=== PATIENT | male | born 1950 | race Caucasian/White ===

== ENCOUNTER 2018-07-30 07:30 | Inpatient (IN) | payer OTHER, MEDICARE ==
--- NOTE | 2018-08-05 20:10 | HP ---
HISTORY AND PHYSICAL: DATE OF ADMISSION/SURGERY: 08/18/18 SURGEON: Samantha Larry MD* (dictated by ELY Singletary). PROCEDURE: Revision right total hip arthroplasty. CHIEF COMPLAINT: Right hip pain. HISTORY OF PRESENT ILLNESS: Mr. Ortega is a 68-year-old gentleman with a painful right total hip arthroplasty. He has elected to proceed with revision of a right total hip arthroplasty. The surgery is scheduled for 08/18/18. PAST MEDICAL HISTORY: Hypertension and gout. PAST SURGICAL HISTORY: Right total hip arthroplasty and ganglion cyst excision. CURRENT MEDICATIONS: 1. Omeprazole 20 mg daily. 2. Hydrochlorothiazide 12.5 mg daily. ALLERGIES: To HYDROCODONE causing a rash. FAMILY HISTORY: Denies. SOCIAL HISTORY: He is 68-year-old gentleman, lives with his . He does not smoke or use drugs. Uses occasional alcohol. REVIEW OF SYSTEMS: A complete 14-point review of systems was reviewed with the patient. Positive for GERD. He denies history of DVT, PE, hepatitis, HIV, or anesthesia problems. PHYSICAL EXAMINATION GENERAL: He is well developed, well nourished, in no acute distress. VITAL SIGNS: He stands 5 feet 9 inches tall, weighs 185 pounds. His blood pressure is 122/84 and his heart rate is 60. HEENT: Normocephalic, atraumatic. NECK: Supple. No palpable lymph nodes. PULMONARY: The lungs are clear to auscultation bilaterally. CARDIO: Regular rate and rhythm. Strong S1, S2. ABDOMEN: Soft, nontender, and nondistended. NEUROLOGICAL: He is alert and oriented x3. MUSCULOSKELETAL: Right lower extremity: The skin is intact. There are no open wounds or abrasions. He walks with an antalgic type gait favoring his right hip. He has a 2+ dorsalis pedis pulse, intact sensation and his lower extremity muscle group strengths are intact at 5/5. ASSESSMENT AND PLAN: Mr. Ortega is a 68-year-old gentleman with a painful right total hip arthroplasty. He has failed conservative treatment and elected to have a revision of the right total hip arthroplasty. The surgery is scheduled for 08/18/[address] Larry discussed the risks and the benefits of the surgery at today's visit and all of his questions were answered. He will follow up with Dr. Larry 2 weeks after the surgery. ELY SINGLETARY [id number]/[facility] #: [id number] [place]
[2018-08-17] MEDS ORDERED: Buffered Lidocaine 0.9% SYRIN* 5 ML/SYR SYRINGE INTRADERM ONE (14:47)
[2018-08-18] MEDS ORDERED: Acetaminophen TAB* 325 MG PO ONE (06:00)
[2018-08-18] MEDS ORDERED: Gabapentin CAP(*) 300 MG PO ONE (06:00)
--- OUTSIDE RECORDS SUMMARY | 2018-08-18 08:05 | XMS REPORT | Continuity of Care Document ---
:1950 External Reference #:[id number] Author Name Yeison Hernandez Care Team Providers Name Role Phone Lucille Fritz M.D. Primary Care Physician Unavailable Payers Type Date Identification Numbers Payment Provider Subscriber Policy Number: [id number] [facility] Health Ins Ppo/Epo Pa Ortega PayID: [id number] [address] [place] [address] Advance Directives Description No Information Available Problems Date Description Provider Status Onset: 04/27/2018 Prosthetic arthroplasty of the hip Samantha Larry M.D. Active Onset: 04/27/2018 Prosthetic joint loosening Samantha Larry M.D. 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 Tobacco Use Start: Unknown Never Smoked Cigarettes Smoking Status Reviewed: 08/05/18 Never Smoked Cigarettes ETOH Use Currently consumes alcohol 20 drinks/week Tobacco Use Start: Unknown Patient has never smoked Recreational Drug Use Denies Drug Use Exercise Type/Frequency Exercises sporadically Allergies, Adverse Reactions, Alerts Date Description Reaction Status Severity Comments 04/27/2018 Hydrocodone Active 04/06/2018 NKDA Inactive Medications Medication Date Status Form Strength Qnty SIG Indications Ordering Provider Omeprazole Active Capsules 20mg 1 tab Unknown /0000 DR daily by mouth Amoxicillin 00/00 Active Capsules 500mg 4caps take 4 Laron M /0000 pills, 2 g Marson, 1 hour MD before dental or gi procedure Hydrochlorothiazide Active Tablets 12.5mg 1 by mouth Unknown /0000 every day Indomethacin 00/00 Hx Capsules 25mg 1-4 caps Unknown /0000 by mouth - each day 08/04 directed. Immunizations Description No Information Available Vital Signs Date Vital Result Comment 08/05/2018 8:38am Height 69.5 inches 5'9.50" Weight 185.00 lb Heart Rate 60 /min BP Systolic 122 mmHg BP Diastolic 84 mmHg Body Temperature 98.0 F BMI (Body Mass Index) 26.9 kg/m2 05/08/2018 1:51pm Height 69.5 inches 5'9.50" Heart Rate 88 /min BP Systolic 138 mmHg BP Diastolic 78 mmHg Respiratory Rate 18 /min Pain Level 5 04/27/2018 8:03am Height 69.5 inches 5'9.50" Weight 184.00 lb Heart Rate 64 /min BP Systolic 158 mmHg BP Diastolic 90 mmHg Pain Level 8 BMI (Body Mass Index) 26.8 kg/m2 04/13/2018 11:03am Height 69 inches 5'9" Weight 185.00 lb BP Systolic Sitting 132 mmHg BP Diastolic Sitting 82 mmHg Respiratory Rate 17 /min Pain Level 5 while walking BMI (Body Mass Index) 27.3 kg/m2 Results Test Date Facility Test Result H/L Range Note CBC Auto Diff 04/27/2018 [facility] White Blood 5.6 10^3/uL N 3.5-10.[address] [place] [address] [phone] Red Blood Count 5.49 10^6/uL High 4.00-5.40 Hemoglobin 17.1 g/dL N 14.0-18.0 Hematocrit 50 % N 42-52 Mean Corpuscular Volume 91 fL N 80-94 Mean Corpuscular Hemoglobin 31 pg N 27-31 Mean Corpuscular HGB Conc 34 g/dL N 31-36 Red Cell Distribution Width 15 % N 10.5-15 Platelet Count 218 10^3/uL N 150-450 Mean Platelet Volume 8.7 um3 N 7.4-10.4 Abs Neutrophils 4.0 10^3/uL N 1.5-7.7 Abs Lymphocytes 0.9 10^3/uL Low 1.0-4.8 Abs Monocytes 0.5 10^3/uL N 0-0.8 Abs Eosinophils 0.1 10^3/uL N 0-0.6 Abs Basophils 0.1 10^3/uL N 0-0.2 Abs Nucleated RBC 0 10^3/uL Granulocyte % 71.0 % N 38-83 Lymphocyte % 16.5 % Low 25-47 Monocyte % 8.9 % High 0-7 Eosinophil % 2.4 % N 0-6 Basophil % 1.2 % N 0-2 Nucleated Red Blood Cells % 0 Laboratory test 04/27/2018 [facility] C Reactive 3.29 mg/L N < 8.[address] [place] [address] [phone] Erythrocyte Sed Rate 0 mm/Hr N 0-40 Procedures Date Code Description Status 04/13/2018 98981 Xray Knee 3 Views Completed 04/13/2018 15131 Radiologic Exam Hip Unilateral With Pelvis 2-3 Views Completed Encounters Type Date Location Provider Dx Diagnosis Office Visit 05/08/2018 Orthopedic Katie Jansen4.030D [facility] loosening of 2:15p [facility]el Hassan internal right hip prosthetic joint, subs M25.551 Pain in right hip Z96.641 Presence of right artificial hip joint Z96.641 Presence of right artificial hip joint M25.551 Pain in right hip Office Visit 04/27/2018 8:00a Orthopedic Katie Jansen4.030A [facility] loosening Services [facility] Sonya [facility] right hip prosthetic joint, init Z96.641 Presence of right artificial hip joint M25.551 Pain in right hip Office Visit 04/13/2018 11:00a Deb Osullivan T84.030A [facility] loosening Services Of Radha Prabhakar MD of internal AT [place] right hip prosthetic joint, init Z96.641 Presence of right artificial hip joint Plan of Treatment Future Appointment(s):09/02/2018 8:45 am - Samantha Larry M.D. at [facility]08/18/2018 1:00 pm - Samantha Larry M.D. at [facility]08/05/2018 - Samantha Larry M.D.Z96.641 Presence of right artificial hip jointFollow up:Follow up: 2 weeks after rlaqoktK12.551 Pain in right hipNew Xrays:Hip Right 2 Views And Pelvis 51299 - [id number], Ordered: 08/05/18
[2018-08-18] MEDS ORDERED: Gabapentin CAP(*) 300 MG ONE (09:25)
[2018-08-18] MEDS ORDERED: ceFAZolin 2 GM PREMIX in ORs 2 GM/50 ML BAG IVPB ONE (09:25)
[2018-08-18] MEDS ORDERED: Acetaminophen TAB* 325 MG ONE (09:25)
[2018-08-18] MEDS ORDERED: fentaNYL* 50 MCG/ML 2 ML VIAL (100 MCG VIAL) ONE ×4 (11:28→17:49)
[2018-08-18] MEDS ORDERED: Midazolam* 1 MG/ML 5 ML VIAL (5 MG) ONE (11:28)
[2018-08-18] MEDS ORDERED: Famotidine IV* 10 MG/ML 2 ML (20 mg) ONE (11:28)
[2018-08-18] MEDS ORDERED: Ropivacaine (OR use only) 2 MG/ML 10 ML ONE (12:14)
[2018-08-18] MEDS ORDERED: Lidocaine 1% MPF wEPI 200,000* 30 ML SDV ONE (12:56)
[2018-08-18] MEDS ORDERED: Bupivacaine 0.25% SDV PF* 10 ML VIAL INJ ONE (12:56)
[2018-08-18] MEDS ORDERED: Bupivacaine 0.5% SDV PF* 30ML VIAL ONE (13:19)
[2018-08-18] MEDS ORDERED: Bupivacaine-MPF SPINAL* 7.5 MG/ML - 2ML AMP ONE (13:19)
[2018-08-18] MEDS ORDERED: EPHEDrine (Pressors)* 50 MG/ML VIAL ONE (13:21)
[2018-08-18] MEDS ORDERED: Hetastarch 6% in NS* 500 ML IV ONE (13:25)
[2018-08-18] MEDS ORDERED: Midazolam* 1 MG/ML 2 ML VIAL (2 MG) ONE ×2 (13:38→15:36)
[2018-08-18] MEDS ORDERED: diPHENhydraMINE IV* 50 MG/ML 1 ml VIAL (BENADRYL) IV PRN ×2 (14:24→18:34)
[2018-08-18] MEDS ORDERED: Acetaminophen TAB* 325 MG PO PRN (14:24)
[2018-08-18] MEDS ORDERED: DiMENhydriNATE IV* 50 MG/ML VIAL IV PUSH PRN (14:24)
[2018-08-18] MEDS ORDERED: Ondansetron INJ* 2 MG/ML VIAL IV PRN ×2 (14:24→18:34)
[2018-08-18] MEDS ORDERED: PROCHLORPERAZINE INJ 5 MG/ML 2 ML VIAL IV PRN (14:24)
[2018-08-18] MEDS ORDERED: Naloxone* 0.4 MG/ML 1 ML VIAL IV PRN (14:24)
[2018-08-18] MEDS ORDERED: Scopolamine 1.5 mg* PATCH TRANSDERM PRN (14:24)
[2018-08-18] MEDS ORDERED: Propofol* 10 MG/ML 20 ML BTL ONE ×2 (15:27→16:15)
[2018-08-18] MEDS ORDERED: Dexamethasone IV* 4 MG/ML 1 ML (4 MG) ONE (15:27)
[2018-08-18] MEDS ORDERED: Dexmedetomidine* 200 MCG/2 ML 2 ML VIAL ONE (15:37)
[2018-08-18] MEDS ORDERED: ceFAZolin 1 GM VIAL(*) ONE (17:00)
[2018-08-18] MEDS ORDERED: Acetaminophen IV 1GM/100ML * 1,000 MG/100 ML VIAL IVPB ONE (17:38)
[2018-08-18] MEDS ORDERED: Cyclobenzaprine TAB* 10 MG PO PRN (18:34)
[2018-08-18] MEDS ORDERED: Polyethylene Glycol 3350* 17 GM PACKET PO PRN (18:34)
[2018-08-18] MEDS ORDERED: Morphine VIAL* 4 MG/ML VIAL (1 ml vial) IV PRN (18:34)
[2018-08-18] MEDS ORDERED: Bisacodyl SUPP* 10 MG SUPP PR PRN (18:34)
[2018-08-18] MEDS ORDERED: Ondansetron TAB* 4 MG PO PRN (18:34)
[2018-08-18] MEDS ORDERED: Magnesium Hydroxide LIQ* 30 ML UDC PO PRN (18:34)
[2018-08-18] MEDS ORDERED: traMADol TAB* 50 MG PO PRN (18:34)
[2018-08-18] MEDS ORDERED: oxyCODONE/Acetamin 5/325 MG* TAB PO PRN (18:34)
[2018-08-18] MEDS ORDERED: fentaNYL* 50 MCG/ML 5 ML VIAL (250 MCG VIAL) ONE (18:58)
[2018-08-18] MEDS: fentaNYL* 50 MCG/ML 2 ML VIAL (100 MCG VIAL) IV PRN ×3 (18:59→19:56)
[2018-08-18] MEDS ORDERED: ceFAZolin 1 GM in Dextrose (*) 1 GM/50 ML BAG IVPB SCH (19:00)
[2018-08-18] MEDS: Docusate CAP* 100 MG PO SCH (21:06)
[2018-08-18] MEDS: oxyCODONE TAB* 5 MG TAB PO PRN (21:06)
[2018-08-18] MEDS: Magnesium Hydroxide LIQ* 30 ML UDC PO SCH (21:14)
[2018-08-18] MEDS: oxyCODONE/Acetamin 5/325 MG* TAB PO PRN (23:17)
[2018-08-19] MEDS: oxyCODONE TAB* 5 MG TAB PO PRN ×5 (01:29→21:12)
[2018-08-19] MEDS: ceFAZolin 1 GM in Dextrose (*) 1 GM/50 ML BAG IVPB SCH ×2 (01:31→08:56)
--- NOTE | 2018-08-19 02:32 | CONS ---
CC: Dr. Larry * CONSULTATION REPORT: DATE OF CONSULT: 08/18/18 REQUESTING PHYSICIAN: The orthopedic surgeon requesting the consult is Dr. Larry. REASON FOR CONSULT: Consultation was requested on 08/18/18 in regards of medical management of the patient status post right hip arthroplasty revision. CHIEF COMPLAINT: Right hip pain. HISTORY OF PRESENT ILLNESS: Kelvin Ortega is a 68-year-old male with history of hypertension and gout as well as history of right total hip arthroplasty 3 years ago, who for the past 3 years had been having problems with right hip and pain due to that. The patient had been seen by Dr. Larry and noted to have painful right total hip arthroplasty. Today, he underwent revision of the right hip by Dr. Larry. Postoperatively, he complained of pain and received a dose of fentanyl for it. Currently, he is mildly sedated from the opioids. PAST MEDICAL HISTORY: Hypertension and gout. PAST SURGICAL HISTORY: Right total hip arthroplasty 3 years ago and ganglion cyst excision in the past. MEDICATIONS: Medications at home include: 1. Omeprazole 20 mg daily. 2. Hydrochlorothiazide 12.5 mg daily. ALLERGIES: HYDROCODONE causes rash. FAMILY HISTORY: Mother with history of possible congenital heart disease for which she was operated on when she was an adult. Father with history of dementia. SOCIAL HISTORY: The patient denies any tobacco, alcohol, or drug use. He lives with his , who is his surrogate. 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 All the other 12 systems were reviewed and were limited due to the patient's sedation postoperatively and were otherwise negative. PHYSICAL EXAM: Blood pressure of 106/66, heart rate of 53 and regular, respiratory rate 18, oxygen saturation 96% on room air, temperature of 97.2. General: The patient is a very pleasant 68-year-old male, who is in no acute distress. Alert, awake, oriented x3. Mildly sedated. HEENT: Head: Atraumatic , normocephalic. Eyes: Pupils are equal, reactive to light and accommodation. Oropharynx is clear. Mucosa moist. Neck: Supple. No JVD. No bruit bilaterally. Respiratory: Clear to auscultation bilaterally. Cardiovascular: Regular rate and rhythm. No murmur. Abdomen: Soft and nontender. Bowel sounds are present in all 4 quadrants. Extremities: There is no edema. Pulses are +2 bilaterally. There is no clubbing or cyanosis. On neuro evaluation, the patient had epidural anesthesia and he still has problems with sensation in bilateral lower extremities. Otherwise, he is able to move all 4 extremities without any problems. Speech is clear. Cranial nerves II through XII grossly intact. On evaluation of the skin, right hip is dressed, postsurgical dressings were not removed. There was no obvious hematoma on inspection of the right thigh. LABORATORY DATA: None obtained today. ASSESSMENT AND PLAN: A 68-year-old male with history of hypertension, was status post right hip revision. At this point, for his hypertension, his hydrochlorothiazide is going to be held and medicine service is going to be following in the morning. For his gastroesophageal reflux disease, his omeprazole is going to be continued. For DVT prophylaxis that will be deferred to the primary orthopedic service. The patient was already placed on Lovenox subcutaneously. His code status is full and his surrogate is his . TIME SPENT: Approximately 50 minutes were spent on consultation of this patient , more than half of that time was spent [id number] with the patient during the interview and physical exam. [id number]/[facility] #: [id number] MTDD
[2018-08-19 05:33] LABS: ABS Basophils 0 10^3/ul (0-0.2); ABS Eosinophils 0 10^3/ul (0-0.6); ABS Lymphocytes 0.3 10^3/ul (1.0-4.8); ABS Monocytes 0.7 10^3/ul (0-0.8); ABS Neutrophils 9.3 10^3/ul (1.5-7.7); ABS Nucleated RBC 0 10^3/ul; Eosinophil % 0.1 %; Hematocrit 35 % (42-52); Hemoglobin 11.9 g/dl (14.0-18.0); Lymphocyte % 3.3 %; Mean Corpuscular HGB Conc 34 g/dl (31-36); Mean Corpuscular Hemoglobin 32 pg (27-31); Mean Corpuscular Volume 93 fL (80-94); Mean Platelet Volume 8.3 fL (7.4-10.4); Nucleated Red Blood Cells % 0; Platelet Count 203 10^3/ul (150-450); Red Blood Count 3.72 10^6/ul (4.00-5.40); Red Cell Distribution Width 14 % (10.5-15); White Blood Count 10.4 10^3/ul (3.5-10.8)
[2018-08-19 05:36] LABS: INR 0.97 (0.77-1.02)
[2018-08-19] MEDS: oxyCODONE/Acetamin 5/325 MG* TAB PO PRN ×5 (05:40→23:11)
[2018-08-19 05:49] LABS: EGFR Non-African American 86.4 (>60)
[2018-08-19] MEDS: Acetaminophen TAB* 325 MG PO SCH ×3 (06:12→21:21)
--- NOTE | 2018-08-19 07:50 | PN ---
Progress Note - Progress Note Date of Service: 08/19/18 SOAP: Subjective: Pt. is alert, pain is well controlled. Objective: Vital Signs: Temp Pulse Resp BP Pulse Ox 97.4 F 83 18 127/71 96 08/19/18 03:04 08/19/18 03:04 08/19/18 05:40 08/19/18 03:04 08/19/18 04:43 Laboratory Results - last 24 hr 08/19/18 08/19/18 08/19/18 05:17 05:17 05:17 WBC 10.4 RBC 3.72 L Hgb 11.9 L Hct 35 L MCV 93 MCH 32 H MCHC 34 RDW 14 Plt Count 203 MPV 8.3 Neut % (Auto) 90.0 Lymph % (Auto) 3.3 [place] % (Auto) 6.4 Eos % (Auto) 0.1 Baso % (Auto) 0.2 Absolute Neuts (auto) 9.3 H Absolute Lymphs (auto) 0.3 L Absolute Monos (auto) 0.7 Absolute Eos (auto) 0 Absolute Basos (auto) 0 Absolute Nucleated RBC 0 Nucleated RBC % 0 INR (Anticoag Therapy) 0.97 Sodium 132 L Potassium 3.9 Chloride 101 Carbon Dioxide 27 Anion Gap 4 BUN 21 Creatinine 0.88 Est GFR ( Amer) 104.5 Est GFR (Non-Af Amer) 86.4 BUN/Creatinine Ratio 23.9 H Glucose 158 H Calcium 7.9 L RLE - thigh soft, dressing c/d/i. distally +df/pf, full sens lt, 2+dp pulse. Assessment: 68 yo M pod 1 s/p revision RTHA Plan: lovenox x 30 days pt/ot 50 % wb with RW x 4 weeks. post xrays satisfactory
[2018-08-19] MEDS: Magnesium Hydroxide LIQ* 30 ML UDC PO SCH ×2 (08:10→19:21)
[2018-08-19] MEDS: Omeprazole CAP* 20 MG PO SCH (08:10)
[2018-08-19] MEDS: Docusate CAP* 100 MG PO SCH ×2 (08:10→19:21)
[2018-08-19] MEDS ORDERED: NON FORMULARY MED* (Hydrochlorothiazide [Hydrochlorothiazide] 12.5 MG) PO SCH (09:00)
--- NOTE | 2018-08-19 11:48 | OP ---
OPERATIVE NOTE: DATE OF OPERATION: 08/18/18 DATE OF : 52 SURGEON: Samantha Larry MD. [employer] SUPERVISOR: ELY Khan Ms. did help throughout the procedure with preparation of the leg, wound retraction, manipulation of the hip, and wound closure. ANESTHESIOLOGIST: Dr. Sánchez. ANESTHESIA: Spinal. 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 POST-OP DIAGNOSIS: As above. OPERATIVE PROCEDURE: Revision right total hip arthroplasty - femoral component only. COMPLICATIONS: None. ESTIMATED BLOOD LOSS: 400 cc. SPECIMEN: Multiple culture swabs were taken of the hip joint and sent to microbiology for culture and sensitivities. Femoral implant was sent to pathology. HARDWARE USED: This is Jennifer total hip hardware. For the stem, an Accolade C size 3 with a 127 degree neck. For the head, a Biolox ceramic V40 femoral head 36 +5, 5 Dall-Miles cables were used as well. BRIEF HISTORY/INDICATION: Mr. Ortega is a 68-year-old gentleman with over 1 year of severe right hip pain. He had 2015 right total hip arthroplasty with Dr. Laron Harris at an outside facility. He initially did well, but developed intense right thigh pain. Radiographs showed obvious loosening of the femoral stem. He was referred to me and I offered him revision surgery of the right total hip arthroplasty. The patient understood the risks of surgery included but were not limited to bleeding, infection, damage to nearby structures, continued pain, need for further surgery, intraoperative fracture, nerve palsy, hardware failure or loosening, dislocation, leg length discrepancy, stroke, heart attack, blood clot and . He wished to proceed. INTRAOPERATIVE FINDINGS: Intraoperatively, the patient's stem was grossly loose. There was some evidence of metallosis. There was no evidence of purulence or infection. The patient's proximal femoral bone had remodeled into a varus position. Distal to the tip of the prior stem was dense sclerotic bone for greater than 1 cm. Due to the patient's intensely sclerotic bone and varus bone remodeling, decision was made to cement a stem. Multiple cables were placed for extra fixation. DESCRIPTION OF PROCEDURE: Mr. Ortega was identified in the preanesthesia unit. His right lower extremity was marked as the correct operative side. Informed consent was signed and placed in the chart. The patient was taken to the operating room and placed under spinal anesthesia. Candelaria catheter was placed. The patient was placed in the left lateral decubitus position on the pegboard. All bony prominences were well padded. Right lower extremity was prepped and draped in the usual sterile fashion. Preop timeout was made, correctly identified the patient, side and site. Appropriate perioperative antibiotics were given within 1 hour of incision. The patient's prior hip incision was incised and carried down to the lateral fascia. Lateral fascia layer was incised in line with the skin incision. A Charnley retractor was placed. Some scar tissue and inflamed bursa was elevated anteriorly and posteriorly. Piriformis and conjoint tendons were elevated off the posterior lateral femur and tagged with a #5 Ethibond. Capsular flap was also made with electrocautery and tagged with #5 Ethibond. There was no purulence, no significant joint fluid. Multiple culture swabs were obtained at the hip joint and sent. There was some visible metallosis. The hip was carefully dislocated. The stem was grossly loose. Lesser troch to center of the femoral head measured 60 mm. Rongeur and electrocautery were used to remove any fibrotic tissue or osteophyte along the proximal stem and the shoulder of the stem. The stem was then easily backslapped out of the femoral canal. There was some visible metallosis. Back scraper was used to remove any fibrotic tissue or appiah-appearing tissue from the femoral canal. Proximal femur was intact with a good stable calcar. In fact, a femoral neck cleanup cut was made to ensure proper seating of the next implant. The femoral canal was noted to have a striking varus bend at the tip of the prior stem. This was noted physically as well as on x-ray. Attempt to advance the reamer showed dense sclerotic bone distal to the prior stem tip. Multiple guidewires were attempted to pass through this bony pedestal unsuccessfully. A mill and a hand shoes sewer were unable to pass through the bony pedestal. A 3-0 drill bit was then used to advance through the bony shelf. Multiple C-arm views were used to follow advancement of the drill bit to ensure safety. The drill bit did violate the lateral cortex. At this point, multiple Dall-Miles cables were placed around the proximal femur and distal to the lateral cortical perforation to ensure stability of the femoral canal. Decision was made at this point that placement of a long distal fixation stem was unlikely to be successful without further complication involving the distal femoral bone. Decision was made to place a cemented femoral stem. The femoral canal was sequentially broached up to a size 3 with the Accolade C broach system. Accolade C had good fit and the trial had excellent fit with appropriate height. Two packages of Simplex with tobramycin were used for the stem cementing. Proper cement technique and proper pressurization was used. The canal was first fully washed and dried. Accolade C size 3 with a 127 degree neck was the final implant used. This was cemented into place with appropriate anteversion. Once the cement had fully set, multiple head trials were trialed. A 36 +5 Biolox Delta ceramic V40 femoral head was chosen as the final head. Lesser troch to center of femoral head measured 60 mm. The hip was reduced and taken through range of motion. The hip was stable in all positions. There was good soft tissue tension and appropriate leg lengths. Previously tagged capsule and tendons were reapproximated to the posterior lateral femur through 2 trochanteric drill holes. Final C-arm views showed satisfactory placement of the stem, the stem was in good alignment. Multiple Dall-Miles cables were noted in satisfactory position. There were no periprosthetic fractures. The patient's incision was copiously irrigated with sterile saline. The lateral fascia layer was closed using interrupted #1 Vicryl. The rest of the incision was closed in a layered fashion using 0 and 2-0 Vicryl. Skin was closed using running 3-0 nylon suture. Sterile Xeroform, 4x4's and paper tape were used to cover the incision. The patient's anesthesia was reversed without difficulty. He was taken to the PACU in stable condition. Intended weightbearing will be weightbearing as tolerated. Intended DVT prophylaxis will be Coumadin with a Lovenox bridge. [id number]/[facility] #: [id number] [facility] CENTERMarianna
[2018-08-19] MEDS: Enoxaparin(*) 40 MG/0.4 ML SYR SUBCUT SCH (12:02)
--- NOTE | 2018-08-19 14:54 | PN ---
Subjective Date of Service: 08/19/18 Interval History: Pt feels well. Some pain with walking. Was instructed to be 50% WB on r leg. Objective Active Medications: Acetaminophen (Tylenol Tab*) 975 mg PO Q8HR [facility] Last Admin: 08/19/18 12:05 Dose: Not Given Bisacodyl (Dulcolax Supp*) 10 mg [place] DAILY PRN PRN Reason: constipation Cyclobenzaprine HCl (Flexeril Tab*) 10 mg PO TID PRN PRN Reason: SPASMS Diphenhydramine HCl (Benadryl Iv*) 12.5 mg IV Q6H PRN PRN Reason: PRURITIS Docusate Sodium (Colace Cap*) 100 mg PO BID [facility] Last Admin: 08/19/18 08:10 Dose: 100 mg Enoxaparin Sodium (Lovenox(*)) 40 mg SUBCUT Q24H [facility] Last Admin: 08/19/18 12:02 Dose: 40 mg Lactated Ringer's (Lactated Ringers 1000 Ml Bag*) 1,000 mls @ 100 mls/hr IV PER RATE [facility] Last Admin: 08/19/18 07:41 Dose: 100 mls/hr Cefazolin Sodium/Dextrose (Kefzol 1 Gm In Dextrose Duplex (*)) 1 gm in 50 mls @ 200 mls/hr IVPB Q8HR@0100,0900,1700 [facility] Stop: 08/19/18 16:00 Last Admin: 08/19/18 08:56 Dose: 200 mls/hr Cefazolin Sodium 1 gm/ Sodium (Chloride) 50 mls @ 200 mls/hr IVPB ONCE ONE Stop: 08/19/18 17:14 Lactulose (Lactulose*) 30 ml PO Q6H PRN PRN Reason: constipation Magnesium Hydroxide (Milk Of Magnesia Liq*) 30 ml PO BID [facility] Last Admin: 08/19/18 08:10 Dose: 30 ml Magnesium Hydroxide (Milk Of Magnesia Liq*) 30 ml PO Q6H PRN PRN Reason: constipation Morphine Sulfate (Morphine Vial*) 2 mg IV Q2H PRN PRN Reason: PAIN Last Admin: 08/19/18 03:05 Dose: 2 mg Omeprazole (Prilosec Cap*) 20 mg PO QAM@0730 [facility] Last Admin: 08/19/18 08:10 Dose: 20 mg Ondansetron HCl (Zofran Inj*) 4 mg IV Q6H PRN PRN Reason: nausea Ondansetron HCl (Zofran Tab*) 4 mg PO Q6H PRN PRN Reason: NAUSEA Oxycodone HCl (Roxycodone Tab*) 10 mg PO Q4H PRN PRN Reason: SEVERE PAIN Last Admin: 08/19/18 12:58 Dose: 10 mg Oxycodone/Acetaminophen (Percocet 5/325 Tab*) 1 tab PO Q4H PRN PRN Reason: PAIN Oxycodone/Acetaminophen (Percocet 5/325 Tab*) 2 tab PO Q4H PRN PRN Reason: PAIN Last Admin: 08/19/18 10:32 Dose: 2 tab Pharmacy Profile Note (Scopolamine Patch Remove*) 1 note PATCH OFF Q72H ONE Stop: 08/21/18 14:27 Polyethylene Glycol/Electrolytes (Miralax*) 17 gm PO DAILY PRN PRN Reason: Constipation Tramadol HCl (Ultram*) 50 mg PO Q6H PRN PRN Reason: PAIN Last Admin: 08/19/18 03:06 Dose: 50 mg Vital Signs - 8 hr 08/19/18 08/19/18 08/19/18 07:14 08:14 10:32 Temperature 98.5 F Pulse Rate 79 Respiratory 16 18 16 Rate Blood Pressure 137/67 (mmHg) O2 Sat by Pulse 97 Oximetry 08/19/18 08/19/18 08/19/18 10:34 10:51 11:09 Temperature 98.0 F Pulse Rate 82 Respiratory 16 18 16 Rate Blood Pressure 145/69 (mmHg) O2 Sat by Pulse 94 Oximetry 08/19/18 08/19/18 12:58 13:08 Temperature Pulse Rate Respiratory 18 18 Rate Blood Pressure (mmHg) O2 Sat by Pulse Oximetry Oxygen Devices in Use Now: Nasal Cannula Appearance: 68 yo m in nAD, aAOx3 Eyes: No Scleral Icterus, PERRLA Ears/Nose/Mouth/Throat: NL Teeth, Lips, Gums, Mucous Membranes Moist Neck: NL Appearance and Movements; NL JVP, Trachea Midline Respiratory: Symmetrical Chest Expansion and Respiratory Effort, Clear to Auscultation Cardiovascular: NL Sounds; No Murmurs; No JVD Abdominal: NL Sounds; No Tenderness; No Distention Lymphatic: No Cervical Adenopathy Extremities: No Clubbing, Cyanosis Skin: No Nodules or Sclerosis, - - R hip wound covered with post op dressings, not uncovered Neurological: Alert and Oriented x 3, NL Muscle Strength and Tone Result Diagrams: 08/19/18 05:17 08/19/18 05:17 Microbiology and Other Data: Microbiology 08/18/18 14:26 Anaerobic Culture - Preliminary Wound No Growth Day 1 Gram Stain - Final Wound Culture - Preliminary No Growth Day 1 Assess/Plan/Problems-Billing Assessment: 68 yo M s/p r hip revision. - Patient Problems (1) History of revision of total hip arthroplasty Comment: as per DR. Larry (2) HTN (hypertension) Comment: cont to hold meds till d/c (3) DVT prophylaxis Comment: Lovenox Status and Disposition: Medicine consult
[2018-08-19] MEDS ORDERED: ceFAZolin 1 GM* Q8H (AddVan) IVPB ONE ×2 (17:00)
[2018-08-20] MEDS: oxyCODONE TAB* 5 MG TAB PO PRN ×3 (01:12→13:43)
[2018-08-20] MEDS: oxyCODONE/Acetamin 5/325 MG* TAB PO PRN ×3 (03:09→11:16)
[2018-08-20] MEDS: Acetaminophen TAB* 325 MG PO SCH (05:14)
[2018-08-20 06:11] LABS: Hematocrit 27 % (42-52); Hemoglobin 9.3 g/dl (14.0-18.0); Mean Platelet Volume 8.5 fL (7.4-10.4); Platelet Count 164 10^3/ul (150-450)
[2018-08-20 06:15] LABS: INR 0.92 (0.77-1.02)
[2018-08-20] MEDS: Magnesium Hydroxide LIQ* 30 ML UDC PO SCH (07:17)
[2018-08-20] MEDS: Docusate CAP* 100 MG PO SCH (07:17)
[2018-08-20] MEDS: Omeprazole CAP* 20 MG PO SCH (07:19)
--- NOTE | 2018-08-20 10:27 | PN ---
Progress Note - Progress Note Date of Service: 08/20/18 SOAP: Subjective: []Patient seen and examined at bedside. He feels well with well controlled pain of his hip. Denies CP, SOB, dizziness, nausea. Objective: []General: Well appearing, NAD RLE - Dressing changed, incision CDI without surrounding erythema. Thigh soft, DF/PF intact, DP2+, sensation intact distally Calves supple and nontender without erythema, edema or palpable cords Assessment: 68 yo M pod 2 s/p revision RTHA Plan: lovenox x 30 days pt/ot 50 % wb with RW x 4 weeks. DC to home Vital Signs Temp 98.5 F 08/20/18 03:48 Pulse 85 08/20/18 03:48 Resp 18 08/20/18 07:29 BP 136/71 08/20/18 03:48 Pulse Ox 94 08/20/18 07:29 Intake & Output 08/19/18 08/20/18 08/20/18 18:59 06:59 18:59 Intake Total 2147 1900 Output Total 200 1450 275 Balance 1947 450 -275 Intake: IV Fluids 1412 LR 1412 IVPB 165 ABX - CEFAZOLIN 165 Oral 570 1900 Output: Urine 200 1450 275 Laboratory Last Values WBC 10.4 10^3/ul (3.5-10.8) 08/19/18 05:17 RBC 3.72 10^6/ul (4.00-5.40) L 08/19/18 05:17 Hgb 9.3 g/dl (14.0-18.0) L 08/20/18 05:27 Hct 27 % (42-52) L 08/20/18 05:27 MCV 93 fL (80-94) 08/19/18 05:17 MCH 32 pg (27-31) H 08/19/18 05:17 MCHC 34 g/dl (31-36) 08/19/18 05:17 RDW 14 % (10.5-15) 08/19/18 05:17 Plt Count 164 10^3/ul (150-450) 08/20/18 05:27 MPV 8.5 fL (7.4-10.4) 08/20/18 05:27 Neut % (Auto) 90.0 % 08/19/18 05:17 Lymph % (Auto) 3.3 % 08/19/18 05:17 [place] % (Auto) 6.4 % 08/19/18 05:17 Eos % (Auto) 0.1 % 08/19/18 05:17 Baso % (Auto) 0.2 % 08/19/18 05:17 Absolute Neuts (auto) 9.3 10^3/ul (1.5-7.7) H 08/19/18 05:17 Absolute Lymphs (auto) 0.3 10^3/ul (1.0-4.8) L 08/19/18 05:17 Absolute Monos (auto) 0.7 10^3/ul (0-0.8) 08/19/18 05:17 Absolute Eos (auto) 0 10^3/ul (0-0.6) 08/19/18 05:17 Absolute Basos (auto) 0 10^3/ul (0-0.2) 08/19/18 05:17 Absolute Nucleated RBC 0 10^3/ul 08/19/18 05:17 Nucleated RBC % 0 08/19/18 05:17 INR (Anticoag Therapy) 0.92 (0.77-1.02) 08/20/18 05:27 Sodium 133 mmol/L (135-145) L 08/20/18 05:27 Potassium 3.9 mmol/L (3.5-5.0) 08/19/18 05:17 Chloride 101 mmol/L (101-111) 08/19/18 05:17 Carbon Dioxide 27 mmol/L (22-32) 08/19/18 05:17 Anion Gap 4 mmol/L (2-11) 08/19/18 05:17 BUN 21 mg/dL (6-24) 08/19/18 05:17 Creatinine 0.88 mg/dL (0.67-1.17) 08/19/18 05:17 Est GFR ( Amer) 104.5 (>60) 08/19/18 05:17 Est GFR (Non-Af Amer) 86.4 (>60) 08/19/18 05:17 BUN/Creatinine Ratio 23.9 (8-20) H 08/19/18 05:17 Glucose 158 mg/dL (70-100) H 08/19/18 05:17 Calcium 7.9 mg/dL (8.6-10.3) L 08/19/18 05:17
[2018-08-20 12:53] VITALS: BP 128/69
[2018-08-20] MEDS: Enoxaparin(*) 40 MG/0.4 ML SYR SUBCUT SCH (13:31)
--- NOTE | 2018-08-20 18:49 | DS ---
ADMISSION HISTORY AND PHYSICAL: DATE OF ADMISSION: 08/18/18. DATE OF DISCHARGE: PROVIDER: Dr. Samantha Larry.* (DICTATED BY ELY CLEMENTE) RECOVERY COLLECTOR: ELY Wooten. 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 OPERATIVE PROCEDURE: Revision right total hip arthroplasty, femoral component only. HOSPITAL COURSE: Surgery was without complication. Of note, multiple [place] cables were placed around the proximal femur and distal to the lateral cortical perforation to ensure stability of the femoral canal due to violation of the lateral cortex with a drill bit at the site of dense sclerotic bone distal to the prior stem tip. The patient briefly recovered in the PACU and then was transferred to the short-stay surgical unit in stable condition. On postop day 1, right thigh was soft. Dressing clean, dry and intact distally. Dorsiflexion and plantar flexion intact. Sensation intact to light touch. 2+ dorsalis pedis pulse. He was also seen by our medicine service during his stay. Hypertension medications were hold until discharge. On postop day 2, he is well-appearing in no acute distress. Dressing was changed. Incision is clean , dry and intact. Thigh was soft. Dorsiflexion and plantar flexion intact. DP pulse 2+. Sensation intact distally. Vital Signs: Temperature 98.5, pulse 85, respiratory rate 18, blood pressure 136/71, pulse ox 94%. Hemoglobin 9.3, hematocrit 27. The patient met his goals of physical therapy. He is obeying the 50% weightbearing instruction well. He deemed to be medically and orthopedically stable for discharge to home. DISCHARGE MEDICATIONS: 1. Omeprazole 20 mg q.a.m. 2. Hydrochlorothiazide 12.5 mg p.o. q.a.m. 3. Docusate 100 mg p.o. b.i.d. 4. Lovenox 40 mg subcu q.24 hours for 30 days. 5. Percocet 5/325 one to two tabs every 4 to 6 hours as needed for pain, max daily dose of 10. 6. Acetaminophen 975 mg p.o. q.8 hours p.r.n., max daily dose 4000 mg of Tylenol from all sources in a day. DISCHARGE INSTRUCTIONS: Discharged to home, 50% weightbearing on operative leg. Hip precautions. Lovenox 40 mg subcutaneous injection once daily for 30 days. Pain control Percocet 5/325 one to two tabs by mouth every 4 to 6 hours as needed for pain, max of 10 tabs per day. Please note that max daily dose of Tylenol is 4000 mg from all sources and Percocet does contain Tylenol. Follow up with Dr. Larry in 10 to 14 days. Discharged to home. ELY CLEMENTE [id number]/[facility] #: [id number] [facility] HOSPITALMarianna
[2018-08-21] MEDS ORDERED: Scopolamine PATCH Remove* 1 NOTE MISC PATCH OFF ONE (14:26)
== END 2018-08-20 13:46 | disposition home health service (06) | DRG 301 ==
LOC: AA 08-18 08:01 → SSU 08-18 20:26
PROVIDERS: ADMIT Orthopaedic Surgery Adult Reconstructive Orthopaedic Surgery; ATTEND Orthopaedic Surgery Adult Reconstructive Orthopaedic Surgery
PROC: 0SPR0JZ Removal of Synthetic Substitute from Right Hip Joint, Femoral Surface, Open Approach (ICD-10-PCS; 2018-08-18)
PROC: 0SRR039 Replacement of Right Hip Joint, Femoral Surface with Ceramic Synthetic Substitute, Cemented, Open Approach (ICD-10-PCS; principal; 2018-08-18 11:45)
DX: T84.030A Mechanical loosening of internal right hip prosthetic joint, initial encounter (principal); T84.050A Periprosthetic osteolysis of internal prosthetic right hip joint, initial encounter; Y79.2 Prosthetic and other implants, materials and accessory orthopedic devices associated with adverse incidents; K44.9 Diaphragmatic hernia without obstruction or gangrene; G89.29 Other chronic pain; M54.5 Low back pain; I08.0 Rheumatic disorders of both mitral and aortic valves; I10 Essential (primary) hypertension; D75.1 Secondary polycythemia; K21.9 Gastro-esophageal reflux disease without esophagitis; M10.9 Gout, unspecified; Z88.6 Allergy status to analgesic agent; Z72.89 Other problems related to lifestyle; Y92.009 Unspecified place in unspecified non-institutional (private) residence as the place of occurrence of the external cause; Z86.010 Personal history of colon polyps
CPT/HCPCS: 36415; 72170; 76000; 80048; 84300; 85014; 85018; 85025; 85049; 85610; 87070; 87073; 87205; 88300; A9270-GY; G8987-GO-CK; G8988-GO-CJ; J0690; J1100; J1650; J2001; J2250; J2270; J2704; J2795; J3010; J3490